=== PATIENT | male | born 1990 | race American Indian/Alaskan Native ===

== ENCOUNTER 2018-12-24 18:08 | Emergency (ER) | payer BC ==
[2018-12-24 18:14] VITALS: BP 145/85
--- NOTE | 2018-12-24 18:34 | Emergency Department Report ---
Blank Doc - Documentation Documentation: This is a 28-year-old male that presents with headache. Stated has also HTN and needs medication refill. This initial assessment/diagnostic orders/clinical plan/treatment(s) is/are subject to change based on patient's health status, clinical progression and re- assessment by fellow clinical providers in the ED. Further treatment and workup at subsequent clinical providers discretion. Patient/guardians urged not to elope from the ED as their condition may be serious if not clinically assessed and managed. Initial orders include: 1- Patient sent to [facility] for further evaluation and treatment
[2018-12-24] MEDS ORDERED: BENADRYL PO ONE (19:43)
[2018-12-24] MEDS ORDERED: TYLENOL PO ONE (19:43)
[2018-12-24] MEDS ORDERED: DELTASONE PO ONE (19:43)
--- NOTE | 2018-12-24 20:24 | Emergency Department Report ---
ED Headache HPI - General Chief Complaint: Headache Stated Complaint: HEADACHE Time Seen by Provider: 12/24/18 18:32 - History of Present Illness Initial Comments: This is a 28-year-old male that presents with headache. Stated has also HTN and needs medication refill Timing/Duration: other (3 days frontal ) Quality: moderate Head Injury Location: frontal Recent Head Trauma: frequent headaches Modifying Factors: improves with: movement Associated Symptoms: nausea/vomiting, sinus infection Allergies/Adverse Reactions: Allergies fresh fruit Allergy (Uncoded 08/18/18 12:55) Itching fresh vegetables Allergy (Uncoded 08/18/18 12:56) Swelling Home Medications: Ambulatory Orders Aspirin EC [Aspirin Enteric Coated TAB] 81 mg PO QDAY #30 tablet 08/20/18 ISOSORBIDE MONOnitrate [Imdur ER] 30 mg PO QDAY #30 tablet 08/20/18 amLODIPine [Norvasc] 5 mg PO QDAY #30 tablet 08/20/18 Acetaminophen [Tylenol Extra Strength] 1,000 mg PO QID PRN #60 tablet 12/24/18 Amlodipine Besylate [Norvasc] 5 mg PO DAILY #30 tablet 12/24/18 Amoxicillin/Potassium Clav [Augmentin 875-125 Tablet] 1 each PO BID 10 Days #20 tablet 12/24/18 ISOSORBIDE MONOnitrate [Imdur ER] 30 mg PO DAILY #30 tab.er.24h 12/24/18 Metoclopramide [Reglan] 10 mg PO Q6H PRN #30 tablet 12/24/18 diphenhydrAMINE [Benadryl CAP] 25 mg PO Q6HR PRN #30 capsule 12/24/18 ED Review of Systems ROS: Stated complaint: HEADACHE Other details as noted in HPI Constitutional: denies: chills, fever Eyes: denies: eye pain, eye discharge, vision change ENT: ear pain, throat pain, congestion Respiratory: cough. denies: shortness of breath, wheezing Cardiovascular: denies: chest pain, palpitations Endocrine: no symptoms reported Gastrointestinal: nausea, vomiting. denies: abdominal pain, diarrhea Genitourinary: denies: urgency, dysuria Musculoskeletal: denies: back pain, joint swelling, arthralgia Skin: denies: rash, lesions Neurological: headache. denies: weakness, numbness, paresthesias, confusion, vertigo Psychiatric: denies: anxiety, depression Hematological/Lymphatic: denies: easy bleeding, easy bruising ED Past Medical Hx - Past Medical History Previous Medical History?: Yes Hx Hypertension: Yes Hx Asthma: Yes - Surgical History Past Surgical History?: No - Social History Smoking Status: Current Every Day Smoker Substance Use Type: None - Medications Home Medications: Home Medications Medication Instructions Recorded Confirmed Last Taken Type Aspirin EC [Aspirin Enteric Coated 81 mg PO QDAY #30 tablet 08/20/18 Unknown Rx TAB] ISOSORBIDE MONOnitrate [Imdur ER] 30 mg PO QDAY #30 tablet 08/20/18 Unknown Rx amLODIPine [Norvasc] 5 mg PO QDAY #30 tablet 08/20/18 Unknown Rx Acetaminophen [Tylenol Extra 1,000 mg PO QID PRN #60 tablet 12/24/18 Unknown Rx Strength] Amlodipine Besylate [Norvasc] 5 mg PO DAILY #30 tablet 12/24/18 Unknown Rx Amoxicillin/Potassium Clav 1 each PO BID 10 Days #20 tablet 12/24/18 Unknown Rx [Augmentin 875-125 Tablet] ISOSORBIDE MONOnitrate [Imdur ER] 30 mg PO DAILY #30 tab.er.24h 12/24/18 Unknown Rx Metoclopramide [Reglan] 10 mg PO Q6H PRN #30 tablet 12/24/18 Unknown Rx diphenhydrAMINE [Benadryl CAP] 25 mg PO Q6HR PRN #30 capsule 12/24/18 Unknown Rx ED Physical Exam - General Limitations: No Limitations General appearance: alert, in no apparent distress - Head Head exam: Present: atraumatic, normocephalic - Eye Eye exam: Present: normal appearance, PERRL Pupils: Present: normal accommodation - ENT ENT exam: Present: normal exam - Expanded ENT Exam Expanded Ear exam: Present: normal external inspection, other (bilat sinus tenderness frontal and maxillary no swelling no erythema ) TM/Canal exam: Erythema: Right TM, Left TM, Effusion: Left TM Mouth exam: Present: normal external inspection. Absent: trismus Teeth exam: Present: normal inspection Throat exam: Positive: tonsillar erythema, tonsillomegaly, other (no exudate no lesions ). Negative: tonsillar exudate, R peritonsillar mass, L peritonsillar mass - Neck Neck exam: Present: normal inspection, full ROM. Absent: tenderness, lymphadenopathy, thyromegaly - Expanded Neck Exam Expanded Neck exam: Absent: tenderness, midline deformity, anterior neck swelling, thyroid mass, carotid bruit, tracheal deviation - Respiratory Respiratory exam: Present: normal lung sounds bilaterally. Absent: respiratory distress, wheezes, stridor, chest wall tenderness - Cardiovascular Cardiovascular Exam: Present: regular rate, normal rhythm, normal heart sounds. Absent: systolic murmur, diastolic murmur, rubs, gallop - GI/Abdominal GI/Abdominal exam: Present: soft, normal bowel sounds. Absent: bruit, hernia - Rectal Rectal exam: Present: deferred - Extremities Exam Extremities exam: Present: normal inspection, full ROM, normal capillary refill. Absent: tenderness, pedal edema, joint swelling - Back Exam Back exam: Present: normal inspection, full ROM. Absent: tenderness, rash noted - Neurological Exam Neurological exam: Present: alert, oriented X3, CN II-XII intact, normal gait, reflexes normal. Absent: motor sensory deficit - Expanded Neurological Exam Expanded Patient oriented to: Present: person, place, time Speech: Present: fluid speech Cranial nerves: EOM's Intact: Normal, Gag Reflex: Normal, Tongue Deviation: Normal, Nystagmus: Normal, Facial Sensation: Normal Cerebellar function: Finger to Nose: Normal, Heel to Zelaya: Normal, Romberg: Normal Upper motor neuron: Ari Neglect: Normal, Pronator Drift: Normal, Babinski Sign: Normal, Sensory Extinction: Normal Sensory exam: Upper Extremity Light Touch: Normal, Upper Extremity Pin Prick: Normal, Upper Extremity Temperature: Normal, UE 2 Point Discrimination: Normal, Lower Extremity Light Touch: Normal, Lower Extremity Pin Prick: Normal, Lower Extremity Temperature: Normal, LE 2 Point Discrimination: Normal Motor strength exam: RUE: 5, LUE: 5, RLE: 5, LLE: 5 DTR: bicep (R): 2+, bicep (L): 2+, ankle (R): 2+, ankle (L): 2+ Best Eye Response ([place]): (4) open spontaneously Best Motor Response ([place]): (6) obeys commands Best Verbal Response (Marita): (5) oriented [place] Total: 15 - Psychiatric Psychiatric exam: Present: normal affect, normal mood - Skin Skin exam: Present: warm, dry, intact, normal color. Absent: rash ED Course Vital Signs 12/24/18 12/24/18 18:14 18:25 Temperature 99.3 F 99.3 F Pulse Rate 89 89 Respiratory 16 18 Rate Blood Pressure 145/85 Blood Pressure 145/85 [Right] O2 Sat by Pulse 99 99 Oximetry ED Medical Decision Making - Medical Decision Making this is sinusitis , pt has chronic headaches same location intensity and recurring duration . is out of bp meds will refill same, tylenol benadryl, reglan for headache augmentin for sinusitis pt will follow up with pcp in 2-3 days given referral to [facility] in 2 days. Critical care attestation.: If time is entered above; I have spent that time in minutes in the direct care of this critically ill patient, excluding procedure time. ED Disposition Clinical Impression: Medication refill Sinusitis Qualifiers: Sinusitis location: maxillary Chronicity: acute Recurrence: not specified as recurrent Qualified Code(s): J01.00 - Acute maxillary sinusitis, unspecified Headache Qualifiers: Headache type: unspecified Headache chronicity pattern: acute headache Intractability: not intractable Qualified Code(s): R51 - Headache Disposition: DC-01 TO HOME OR SELFCARE Is pt being admited?: No Does the pt Need Aspirin: No Condition: Stable Instructions: Sinusitis (ED), Acute Headache (ED), DASH Eating Plan (ED) Prescriptions: Amoxicillin/Potassium Clav [Augmentin 875-125 Tablet] 1 each PO BID 10 Days #20 tablet diphenhydrAMINE [Benadryl CAP] 25 mg PO Q6HR PRN #30 capsule PRN Reason: Headache ISOSORBIDE MONOnitrate [Imdur ER] 30 mg PO DAILY #30 tab.er.24h Amlodipine Besylate [Norvasc] 5 mg PO DAILY #30 tablet Metoclopramide [Reglan] 10 mg PO Q6H PRN #30 tablet PRN Reason: Headache Acetaminophen [Tylenol Extra Strength] 1,000 mg PO QID PRN #60 tablet PRN Reason: headache Referrals: [facility] [Outside] - 3-5 Days Forms: Work/School Release Form(ED) Time of Disposition: 20:31
== END 2018-12-24 20:45 | disposition home or self-care (01) ==
LOC: ED 18:08
DX: J01.00 Acute maxillary sinusitis, unspecified (principal); J01.10 Acute frontal sinusitis, unspecified; I10 Essential (primary) hypertension; Z76.0 Encounter for issue of repeat prescription; J45.909 Unspecified asthma, uncomplicated; F17.200 Nicotine dependence, unspecified, uncomplicated; Z91.018 Allergy to other foods; Z79.82 Long term (current) use of aspirin
CPT/HCPCS: 99282; J7512